=== PATIENT | male | born 1985 ===

== ENCOUNTER 2024-01-26 18:39 | Emergency (ER) | payer OTHER, SELFPAY ==
[2024-01-26 18:41] VITALS: BP 168/95
--- NOTE | 2024-01-26 19:56 | ED.GENMED ---
History of Present Illness
General
Chief Complaint: Abdominal Symptoms
Time Seen by Provider: 01/26/24 19:56
Travel History
Have you had any contact with someone who has COVID-19?: No
Do you have any symptoms of coronavirus? Fever > 100 degrees, chills, cough, shortness of breath, sore throat, loss of taste or smell, muscle aches, or headache?: No
History of Present Illness
History of Present Illness:
HPI: Patient presents with intermittent abdominal pain�he had symptoms a few weeks ago that lasted for a few days and then symptoms recurred a few days ago. He was seen at primary care who ordered CAT scan today which was performed�see below. The
patient currently has minimal symptoms but notes some left-sided discomfort more so when he moves. The patient has no nausea/vomiting/diarrhea.
EXAM:
GENERAL: Well appearing in no distress
HEENT: Moist oral mucosa
CARDIOVASCULAR: No murmurs, normal heart rate, regular rhythm, No chest wall tenderness
PULMONARY: No respiratory distress, breath sounds are clear and equal
ABDOMEN: Soft with no peritoneal signs, very mild left-sided tenderness
NEUROLOGIC: Excellent strength all extremities, no coordination deficits
PSYCHIATRIC: Appropriate mental status, normal insight and judgement
EXTREMITIES: Nontender, no edema, moves all extremities equally
SKIN: No rash, no lesions
TIME OF INITIAL ENCOUNTER: 8 PM
NUMBER AND COMPLEXITY OF PROBLEMS ADDRESSED AT THE ENCOUNTER
� Chronic conditions affecting care: Denies any significant past medical history, has had appendicitis in the past/appendectomy
� Acute Exacerbation and/or Progression of Chronic Illness: This is an acute problem
� Differential Diagnosis includes: Nonspecific abdominal pain, musculoskeletal etiology, epiploic appendagitis, UTI
AMOUNT AND/OR COMPLEXITY OF DATA TO BE REVIEWED AND ANALYZED
� I performed an independent evaluation of and my interpretation is:
EKG:
CT: I reviewed CT report from earlier today�see below
X-rays:
Laboratory Studies: White count normal, C-reactive protein normal, chemistries unremarkable, no evidence of UTI
Other:
� Review of other/old records: I reviewed CT report from earlier today that showed 'acute epiploic appendagitis of the distal descending colon, moderate circumferential wall thickening of the proximal jejunal small bowel loops
suspicious for enteritis, mild perivesical inflammation around the urinary bladder suspicious for acute cystitis, bilateral nonobstructing intrarenal calculi, mild hepatomegaly.'
� Clinical information was obtained by an independent historian: Spoke to at bedside
� Prescriptions/Medications Considered but not given:
� Further testing considered but not performed:
RISK OF COMPLICATIONS AND/OR MORBIDITY OR MORTALITY OF PATIENT MANAGEMENT
� Social determinants of health affecting care: Lives at home
� Discussion with other providers: I reviewed: Note from [facility] Cardenas which indicated that the patient was sent here for acute abdominal pain 'with multiple findings on CT resulted now including enteritis, acute epiploic
appendagitis and possible acute cystitis'
� Escalation of care including admission/observation vs risk of discharge considered: Suspect symptoms are related to epiploic appendagitis�offered Toradol however the patient declines and states he has minimal symptoms
currently. Recommended NSAIDs. I reassessed patient at 10:20 PM and the patient appears very comfortable.
Phy Exam
Physical Exam
Physical Exam:
See HPI
Course
Orders/Labs/Results
Orders:
Orders
01/26/24 19:59
0.9% Sodium Chloride 1000 ml [Nss] 1,000 ml IV BOLUS
01/26/24 20:23
CRP [C-Reactive Protein] Urgent
Complete Blood Count/With Diff Urgent
Comprehensive Metabolic Panel Urgent
Urinalysis Reflex To Culture Urgent
Date Specimen was Collected: 01/26/24
Time Specimen was Collected: 20:17
Abnormal Lab Results
01/26/24
20:23
Urine Ketones 1+ A
(Negative)
01/26/24 20:23
01/26/24 20:23
Vital Signs
Initial and Last Documented VS:
Initial Vital Signs
Temp Pulse Resp BP Pulse Ox
98.1 F 58 18 168/95 100
01/26/24 18:41 01/26/24 18:41 01/26/24 18:41 01/26/24 18:41 01/26/24 18:41
Last Documented Vital Signs
Temp Pulse Resp BP Pulse Ox
98.1 F 58 18 168/95 100
01/26/24 18:41 01/26/24 18:41 01/26/24 18:41 01/26/24 18:41 01/26/24 18:41
*Critical Care Note
Total Time (30-74mins, 75-104mins- exclusive of procedures): Not Applicable
ED Attending Note
-
Portions of this chart may have been created with voice recognition software.� Occasional wrong word or��sound alike� substitutions may have occurred due to the inherent limitations of voice recognition software.
Discharge Plan
Departure
Referrals:
Ashely Gee MD [Family Provider] -
Interventions
Interventions:
*Risk Screen - Suicide Last Done: 01/26/24 20:14
*General Assessment Last Done: 01/26/24 20:14
*Neglect/Abuse Screening Last Done: 01/26/24 20:14
*ED COVID-19 Vaccine History Last Done: 01/26/24 20:14
GI-Cpzqse-Dumnarcbqm Assessment Last Done: 01/26/24 20:14
[2024-01-26 20:14] VITALS: BMI 25.6
[2024-01-26] MEDS: NSS 1000 IV (20:26)
[2024-01-26 20:32] LABS: Urine Albumin Negative (Neg - Trace); Urine Bilirubin Negative (Negative); Urine Character Clear (Clear); Urine Color Straw; Urine Glucose Negative (Negative); Urine Ketone 1+ (Negative); Urine Leukocyte Negative (Negative); Urine Nitrite Negative (Negative); Urine Occult Blood Negative (Negative); Urine Urobilinogen Negative (Neg - 1+)
[2024-01-26 20:34] LABS: % Basophils 0.8 % (0-2); % Eosinophils 0.9 % (0-6); % Immature Granulocytes 0.2 % (0-0.5); % Lymphocytes 31.7 % (20.5-51.1); % Monocytes 8.3 % (1.7-9.3); % Neutrophils 58.1 % (42.2-75.2); Absolute Eosinophils 0.1 10^3/uL (0-0.7); Absolute Lymphocytes 1.7 10^3/uL (1.2-3.4); Absolute Monocytes 0.4 10^3/uL (0.1-0.6); Absolute Neutrophils 3.1 10^3/uL (1.4-6.5); Hematocrit 46.8 % (39.0-52.0); Mean Corp Hgb Conc. 34.2 g/dL (33.0-37.0); Mean Corpuscular Volume 90.7 fL (80.0-94.0); Mean Platelet Volume 9.5 fL (7.4-10.4); Nucleated Red Blood Cells % 0 % (-); Platelet Count 256 10^3/uL (130-400); Red Blood Cell Count 5.16 10^6/uL (4.70-6.10); Red Cell Dist. Width 12.6 % (11.5-14.5); White Blood Cell Count 5.3 10^3/uL (4.8-10.8)
[2024-01-26 20:45] LABS: ALT (SGPT) 22 U/L (0-50); AST (SGOT) 27 U/L (17-59); Albumin 4.8 g/dl (3.5-5.0); Alkaline Phosphatase 77 U/L (38-126); Blood Urea Nitrogen 11 mg/dl (9-20); Calcium 9.5 mg/dl (8.4-10.2); Carbon Dioxide 26 mmol/L (22-30); Chloride 103 mmol/L (98-107); Estimated Creatinine Clearance 117 ml/min; Glucose 89 mg/dl (70-99); Potassium 4.1 mmol/L (3.5-5.1); Sodium 136 mmol/L (135-145); Total Bilirubin 0.6 mg/dl (0.2-1.3); Total Protein 7.6 g/dl (6.3-8.2); eGFR > 60.00
[2024-01-26 20:56] LABS: C-Reactive Protein < 5.00 mg/L (0.0-10.00)
[2024-01-26 22:28] VITALS: BP 117/84
== END 2024-01-26 22:33 | disposition home or self-care (01) ==
LOC: EMR 18:39
PROVIDERS: EMERGENCY PHYSICIAN Emergency Medicine; FAMILY PHYSICIAN Family Medicine
DX: K63.89 Other specified diseases of intestine (principal); K52.9 Noninfective gastroenteritis and colitis, unspecified
CPT/HCPCS: 99284; 96360; 74177; 80053; 81003; 85025; 86140; Q9967

== ENCOUNTER 2025-06-20 14:20 | Emergency (ER) | payer OTHER, SELFPAY ==
[2025-06-20 14:31] VITALS: BP 140/96
[2025-06-20 14:45] LABS: Urine Character Clear (Clear)
[2025-06-20 14:47] LABS: Hematocrit 41.1 % (39.0-52.0); Hemoglobin 14.9 g/dL (13.0-18.0); Mean Corp Hgb Conc. 36.3 g/dL (33.0-37.0); Mean Corpuscular Volume 86.3 fL (80.0-94.0); Nucleated Red Blood Cells % 0 % (-); Platelet Count 208 10^3/uL (130-400); Red Cell Dist. Width 12.5 % (11.5-14.5)
[2025-06-20 14:50] LABS: Urine Red Blood Cell 40-50 /HPF (0-2); Urine Squamous Cell 0-2 /LPF (Few)
[2025-06-20 14:51] LABS: Urine White Cell 0-2 /HPF (0-5)
[2025-06-20 15:09] LABS: Blood Urea Nitrogen 16 mg/dl (9-20); Calcium 9.7 mg/dl (8.4-10.2); Carbon Dioxide 21 mmol/L (22-30); Chloride 108 mmol/L (98-107); Glucose 104 mg/dl (70-99); Sodium 139 mmol/L (135-145); eGFR > 60.00
[2025-06-20] MEDS: TORADOL 15 MG IV (18:48)
[2025-06-20] MEDS: NSS 1000 IV (18:49)
[2025-06-20 19:04] VITALS: BMI 21.3
--- NOTE | 2025-06-20 19:04 | ED.GENMED ---
History of Present Illness
General
Chief Complaint: Flank Pain
Source: patient
Exam Limitations: none
Time Seen by Provider: 06/20/25 18:22
Nursing documentation reviewed up to this point in time: agreed with
History of Present Illness
History of Present Illness:
Patient is a 40-year-old male who presents to the emergency department with acute onset right flank pain which started 4.5 hours ago. Patient describes a sharp pain in his right flank which radiates into his right lower abdomen. He also describes
associated urinary hesitancy and nausea. He denies any fever, chills, vomiting, or obvious hematuria.
Patient states while he was out in the waiting room he urinated and passed what appears to be a kidney stone. His pain is now much less intense however still has some lingering discomfort.
Patient denies any past history of kidney stones. He has had an appendectomy many years ago.
Review of Systems
Review of Systems
Allergies reviewed?: Yes
All Other Systems: ROS reviewed and negative except as documented in HPI and ROS
Phy Exam
Physical Exam
Physical Exam:
Vitals: Hypertensive, otherwise vital signs stable.
General: Patient is well appearing, no acute distress
Skin: Warm and dry, no rashes or lesions
Head: Normocephalic, atraumatic
Eyes: Sclera nonicteric.
Throat: Protecting airway
Neck: Normal ROM, no cervical spine tenderness, no meningismus
Cardiac: Regular rate and rhythm, no murmurs.
Pulm: Normal respiratory effort, no wheezes, rales, rhonchi heard on exam
Abdomen: Abdomen soft. Mild tenderness in right lower abdomen. No rebound tenderness or guarding. Mild right CVA tenderness. No rash. Well-healed old surgical scar from appendectomy.
Extremities: No evidence of cyanosis or edema
Neuro: AAOx3. Grossly intact.
Psychiatric: Normal affect.
Course
Orders/Labs/Results
Orders:
Orders
06/20/25 14:37
Basic Metabolic Panel Urgent
Complete Blood Count/With Diff Urgent
Urinalysis Reflex To Culture Urgent
Date Specimen was Collected: 06/20/25
Time Specimen was Collected: 14:31
Urine Microscopic Reflex Cult Urgent
06/20/25 18:29
Abdomen/Pelvis wo Contrast CT [CT Abd/pelvis Wo Iv Cont] Urgent
Comment:
Reason For Exam: Right flank pain
0.9% Sodium Chloride 1000 ml [Nss] 1,000 ml IV BOLUS
Ketorolac [Toradol] 15 mg IV NOW STA
Abnormal Lab Results
06/20/25
14:37
WBC 4.6 L 10^3/uL
(4.8-10.8)
MCH 31.3 H pg
(27.0-31.0)
Chloride 108 H mmol/L
(98-107)
Carbon Dioxide 21 L mmol/L
(22-30)
Glucose 104 H mg/dl
(70-99)
Urine Ketones 2+ A
(Negative)
Ur Occult Blood Reflex 4+ A
(Negative)
Urine RBC 40-50 A /HPF
(0-2)
Urine Bacteria (Reflex) Few A
(Negative)
Urine Albumin (Reflex) 1+ A
(Neg - Trace)
06/20/25 14:37
06/20/25 14:37
Vital Signs
Initial and Last Documented VS:
Initial Vital Signs
Temp Pulse Resp BP Pulse Ox
98.5 F 65 16 140/96 100
06/20/25 14:31 06/20/25 14:31 06/20/25 14:31 06/20/25 14:31 06/20/25 14:31
Last Documented Vital Signs
Temp Pulse Resp BP Pulse Ox
98.5 F 64 18 134/69 100
06/20/25 14:31 06/20/25 19:07 06/20/25 19:07 06/20/25 19:07 06/20/25 19:08
MDM/Problems Addressed
Differential Diagnosis Includes:
Not limited to: Renal colic, obstructing ureteral stone, cystitis, pyelonephritis, constipation, muscle strain, etc.
MDM/Problems Addressed:
40-year-old male presenting with acute onset right flank pain earlier today associated with nausea and urinary hesitancy. Some improvement in symptoms by my evaluation and reports noticing a stone in the urine sample he provided in ED. No fever,
dysuria, vomiting. No history of similar symptoms. Hypertensive on arrival, otherwise vital signs stable. He is afebrile. Physical exam as above. Patient well-appearing, nontoxic.
Symptoms consistent with likely renal colic. He has a past appendectomy. No infectious symptoms to suggest intra-abdominal infection. Prior to my assessment basic labs were obtained with reveal a very mild leukopenia. Chemistry without
clinically significant abnormalities. Urine shows 40�50 RBCs however no evidence of infection.
Patient did have what appears kidney stone earlier in the emergency department. He remains with some discomfort however significantly improved. ED plan: Treat pain, give IV fluids. Given persistent pain in right flank�will obtain noncontrast CT
scan abdomen/pelvis for further evaluation.
Update 8 PM: CT scan shows no evidence of obstructive uropathy or other acute findings. On reassessment�patient's symptoms have improved. He is well-appearing and afebrile. Suspect presenting symptoms likely secondary to right sided kidney stone
which he did pass in the waiting room. No evidence of associated urinary tract infection. No renal insufficiency. He already has urology follow-up scheduled for next week. Feel stable for discharge home with advice to stable hydrated, take
Motrin, return precautions. Patient comfortable with plan.
Chronic conditions affecting care:
N/A
Acute Exacerbation and/or Progression of Chronic Illness:
N/A
*Radiology
Radiology exam reviewed: radiology read reviewed
*Pulse Oximetry
SaO2: 100
Oxygen Mode of Delivery: Room air
Patient hypoxic: no
*EKG
Interpreted by ED Provider?: NA
*Monitor Worker Interpretation
Rate: Monitor Worker- N/A
*Critical Care Note
Total Time (30-74mins, 75-104mins- exclusive of procedures): Not Applicable
ED Attending Note
-
Portions of this chart may have been created with voice recognition software.� Occasional wrong word or��sound alike� substitutions may have occurred due to the inherent limitations of voice recognition software.
Discharge Plan
Departure
Patient Disposition: Home (Routine Discharge)
Date of Disposition: 06/20/25
Time of Disposition: 20:10
Patient with high blood pressure during this ER visit?: Yes
Condition: Good
Discharge Problem:
Renal colic on right side
Instructions: Kidney Stones (DC), BLOOD PRESSURE
Referrals:
Ashely Gee MD [Family Provider, Family Practice]
Activity Restrictions/Additional Instructions:
RETURN TO THE EMERGENCY DEPARTMENT WITH ANY RECURRENT/INTRACTABLE FLANK PAIN, PAINFUL OR DIFFICULT URINATION, INTRACTABLE NAUSEA/VOMITING, FEVERS, WORSENING IN CURRENT SYMPTOMS, OR ANY OTHER CONCERNS
- As discussed�your lab work showed no acute abnormalities. Your CT scan showed no evidence of obstructing kidney stones however I suspect your pain was likely due to a kidney stone that you passed while in the waiting room.
- It is important stay well-hydrated. You can take Motrin at home as needed for pain.
- Keep your follow-up appoint with urology for next week.
Monitor your symptoms closely and return to the emergency department with any acute worsening/new symptoms or any other concerns
Interventions
Interventions:
*Risk Screen - Suicide Last Done: 06/20/25 14:31
*Neglect/Abuse Screening Last Done: 06/20/25 14:31
MN-Ppzvhz-Gycarxkizu Assessment Last Done: 06/20/25 19:01
ED-Male Genitourinary Assessment Last Done: 06/20/25 19:01
Discharge Date and Time
Print Language: LITHUANIAN
[2025-06-20 19:07] VITALS: BP 134/69
[2025-06-20 20:34] VITALS: BP 121/80
== END 2025-06-20 20:41 | disposition home or self-care (01) ==
LOC: EMR 14:20
PROVIDERS: Student in an Organized Health Care Education/Training Program; EMERGENCY PHYSICIAN Emergency Medicine; FAMILY PHYSICIAN Family Medicine
DX: N20.0 Calculus of kidney (principal); Z90.49 Acquired absence of other specified parts of digestive tract
CPT/HCPCS: 96374; 96361; 99284; 74176; 80048; 81003; 81015; 85025